=== PATIENT | male | born 1975 | race Native Hawaiian/Other Pacific Islander ===

== ENCOUNTER 2017-08-06 11:13 | Outpatient (CLI) | payer OTHER | END 2017-08-06 12:15 | disposition home or self-care (01) | LOC: RAD 11:13 | DX: M23.8X2 Other internal derangements of left knee (principal); M23.8X1 Other internal derangements of right knee ==

== ENCOUNTER 2022-10-02 12:43 | Outpatient (CLI) | payer OTHER | END 2022-10-02 19:05 | disposition home or self-care (01) | LOC: RAD 12:43 | PROVIDERS: ATTEND Physician Assistant | DX: M25.561 Pain in right knee (principal); M25.562 Pain in left knee ==